=== PATIENT | male | born 2000 | race African-American/Black ===

== ENCOUNTER 2022-05-09 12:48 | Outpatient (CLI) | payer OTHER ==
[2022-05-09 13:13] LABS: PLATELET COUNT 259 K/uL (142-355)
[2022-05-09 13:36] LABS: POTASSIUM 3.8 mmol/L (3.6-5.2)
[2022-05-09 13:48] LABS: PARTIAL THROMBOPLASTIN TIME 27.7 SECONDS (24.5-33.6)
== END 2022-05-09 19:54 | disposition home or self-care (01) ==
LOC: LABW 12:48
PROVIDERS: ATTEND Family Medicine
DX: R04.0 Epistaxis (principal); Z72.89 Other problems related to lifestyle
CPT/HCPCS: 36415; 80053; 84439; 84443; 85027; 85610; 85730